=== PATIENT | female | born 1955 | race Caucasian/White ===

== ENCOUNTER 2023-05-11 10:52 | Emergency (ER) | payer MEDICARE ==
[~2023-05-11] VITALS: Wt 100.2 kg
== END 2023-05-11 12:30 | disposition short-term general hospital (02) ==
LOC: ED 10:52
DX: I62.9 Nontraumatic intracranial hemorrhage, unspecified (principal); J45.909 Unspecified asthma, uncomplicated; Z98.890 Other specified postprocedural states

== ENCOUNTER → 2025-03-08 | Outpatient (CLI) | payer MEDICARE | END | disposition home or self-care (01) | LOC: ORTHO 03:11 | PROVIDERS: ATTEND Orthopaedic Surgery | DX: M79.602 Pain in left arm (principal) ==

== ENCOUNTER → 2025-03-24 | Outpatient (CLI) | payer MEDICARE | END | disposition home or self-care (01) | LOC: RAD 03-23 09:30 | PROVIDERS: ATTEND Orthopaedic Surgery | DX: M85.852 Other specified disorders of bone density and structure, left thigh (principal); M85.851 Other specified disorders of bone density and structure, right thigh; M81.0 Age-related osteoporosis without current pathological fracture ==

== ENCOUNTER → 2025-03-29 | Outpatient (CLI) | payer MEDICARE | END | disposition home or self-care (01) | LOC: ORTHO 01:12 | PROVIDERS: ATTEND Orthopaedic Surgery | DX: S42.202D Unspecified fracture of upper end of left humerus, subsequent encounter for fracture with routine healing (principal); X58.XXXD Exposure to other specified factors, subsequent encounter ==